=== PATIENT | female | born 1975 | race Caucasian/White ===

== ENCOUNTER 2022-10-09 16:20 | Outpatient (CLI) | payer BC, SELFPAY ==
[2022-10-09 16:46] LABS: Hemoglobin 15.7 g/dL (12.0-15.0); Mean Corpuscular Hemoglobin 28.8 pg (26-34); Mean Corpuscular Volume 89.7 fl (80-100); Mean Platelet Volume 11.4 fl (7.4-10.4); Platelet Count Result 406 k/mm3 (150-375); Red Blood Count 5.46 M/mm3 (4.2-5.4); Red Cell Distribution Width 13.4 % (11.5-14.5); White Blood Count 12.2 K/mm3 (4.5-10.0)
[2022-10-09 16:54] LABS: Alanine Aminotransferase 15 U/L (6-35); Albumin Level 4.2 g/dL (3.5-5.1); Alkaline Phosphatase 144 U/L (38-126); Anion Gap 13 mmol/L (8-16); Aspartate Amino Transferase 18 U/L (14-36); Bilirubin,Total 0.8 mg/dL (0.2-1.3); Blood Urea Nitrogen 8 mg/dL (7-17); CRP 8.9 mg/dL (<1.0); Calcium 8.9 mg/dL (8.4-10.2); Carbon Dioxide 27 mmol/L (22-30); Chloride 94 mmol/L (98-107); Estimated Glomerular Filt Rate > 60; Glucose 111 mg/dL (65-110); Potassium 3.3 mmol/L (3.4-5.0); Sodium 134 mmol/L (137-145)
[2022-10-09 18:19] LABS: Erythrocyte Sedimentation Rate 6 mm/hr (0-20)
[2022-10-09 19:10] LABS: Hepatitis B Surface Antigen Negative (Negative)
[2022-10-09 19:27] LABS: Hepatitis B Surface Anti Res Negative
[2022-10-13 14:24] LABS: NIL 0.88 IU/mL; Quantiferon TB Plus, 1T POSITIVE (NEGATIVE)
[2022-10-14 02:56] LABS: Hepatitis B Core Ab Total Nonreactive (Nonreactive)
== END 2022-10-09 16:21 | disposition home or self-care (01) ==
LOC: ANHLAB 16:21
PROVIDERS: PCP Internal Medicine; Visit Provider Internal Medicine Gastroenterology
DX: K51.90 Ulcerative colitis, unspecified, without complications (principal); K52.9 Noninfective gastroenteritis and colitis, unspecified
CPT/HCPCS: 36415; 80053; 85027; 85652; 86140; 86480; 86704; 86706; 87340

== ENCOUNTER 2022-10-16 09:14 | Outpatient (CLI) | payer BC, SELFPAY ==
--- NOTE | ~2022-10-16 | XR_ITS ---
EXAMINATION: XR chest 2V DATE: 10/16/2022 09:33 INDICATION: Weight TECHNIQUE: PA and lateral views of the chest are obtained. COMPARISON: 10/28/2018 FINDINGS: The lungs are free of acute opacities. No pleural effusion or pneumothorax. The cardiomedia stinal silhouette is normal. There is mild thoracic spondylosis. IMPRESSION: 1. No acute cardiopulmonary abnormality. Reviewed, dictated and finalized at location L.
== END 2022-10-16 09:15 | disposition home or self-care (01) ==
PROVIDERS: PCP Internal Medicine; Visit Provider Internal Medicine Gastroenterology
DX: R63.4 Abnormal weight loss (principal); R76.12 Nonspecific reaction to cell mediated immunity measurement of gamma interferon antigen response without active tuberculosis
CPT/HCPCS: 71046

== ENCOUNTER 2022-12-22 11:14 | Outpatient (CLI) | payer BC, SELFPAY ==
[2022-12-22 11:59] LABS: Cholesterol 162 mg/dL (0-200); HDL Direct 23 mg/dL; Triglycerides 172 mg/dL (<150)
[2022-12-22 12:10] LABS: LDL Cholesterol Direct 103 mg/dL
[2022-12-22 12:52] LABS: Vitamin D 25 Hydroxy < 12.8 ng/mL
[2022-12-22 16:47] LABS: Folic Acid 13.9 ng/mL (2.76->20)
== END 2022-12-22 11:15 | disposition home or self-care (01) ==
PROVIDERS: PCP Family Medicine; Visit Provider Nurse Practitioner Family
DX: R53.83 Other fatigue (principal); Z13.220 Encounter for screening for lipoid disorders
CPT/HCPCS: 36415; 80061; 82306; 82607; 82746; 84443

== ENCOUNTER 2023-02-02 13:55 | Outpatient (CLI) | payer BC, SELFPAY ==
[2023-02-02 14:29] LABS: Hematocrit 44.8 % (37.0-47.0); Hemoglobin 14.3 g/dL (12.0-15.0); Mean Corpuscular HGB Conc 31.9 g/dl (32-36); Mean Corpuscular Hemoglobin 29.1 pg (26-34); Mean Corpuscular Volume 91.1 fl (80-100); Mean Platelet Volume 11.8 fl (7.4-10.4); Platelet Count Result 251 k/mm3 (150-375); Red Blood Count 4.92 M/mm3 (4.2-5.4); White Blood Count 9.9 K/mm3 (4.5-10.0)
[2023-02-02 14:31] LABS: Alanine Aminotransferase 29 U/L (6-35); Albumin Level 4.2 g/dL (3.5-5.1); Alkaline Phosphatase 86 U/L (38-126); Anion Gap 7 mmol/L (8-16); Aspartate Amino Transferase 29 U/L (14-36); Bilirubin,Total 0.5 mg/dL (0.2-1.3); Blood Urea Nitrogen 8 mg/dL (7-17); CRP 0.5 mg/dL (<1.0); Carbon Dioxide 27 mmol/L (22-30); Chloride 103 mmol/L (98-107); Estimated Glomerular Filt Rate > 60; Glucose 96 mg/dL (65-110); Sodium 137 mmol/L (137-145)
[2023-02-02 15:09] LABS: Erythrocyte Sedimentation Rate 12 mm/hr (0-20)
== END 2023-02-02 13:56 | disposition home or self-care (01) ==
LOC: ANHLAB 13:58
PROVIDERS: PCP Nurse Practitioner Family; Visit Provider Internal Medicine Gastroenterology
DX: K51.019 Ulcerative (chronic) pancolitis with unspecified complications (principal); K52.9 Noninfective gastroenteritis and colitis, unspecified
CPT/HCPCS: 36415; 80053; 85027; 85652; 86140

== ENCOUNTER 2023-02-19 13:00 | Outpatient (RCR) | payer BC, OTHER, SELFPAY ==
[2022-11-07 14:23] VITALS: BP 125/87; PULSE 93; RESP 18; TEMP 37; O2SAT 96
[2022-11-07 15:17] VITALS: BP 135/68
[2022-11-21 13:17] VITALS: BP 148/86; PULSE 92; TEMP 36.8; O2SAT 98
[2022-12-25 13:24] VITALS: BP 119/82; PULSE 78; RESP 18; O2SAT 97
[2023-02-19 13:11] VITALS: BP 166/87; PULSE 76; TEMP 37; O2SAT 98
== END 2023-02-23 12:11 ==
LOC: AMCINF 13:00
PROVIDERS: Referring Provider Internal Medicine Gastroenterology; Visit Provider Internal Medicine Hematology & Oncology
DX: K51.90 Ulcerative colitis, unspecified, without complications (principal); K52.9 Noninfective gastroenteritis and colitis, unspecified; R15.2 Fecal urgency; I73.00 Raynaud's syndrome without gangrene; G47.00 Insomnia, unspecified; F17.200 Nicotine dependence, unspecified, uncomplicated
CPT/HCPCS: 96365; J3380; J7050

== ENCOUNTER 2023-04-15 00:39 | Day surgery (SDC) | payer BC, SELFPAY ==
[2023-04-08 14:36] VITALS: BMI 29.1
[2023-04-15 08:26] VITALS: BP 140/83; PULSE 94; RESP 16; TEMP 36.4; O2SAT 99; BMI 27.8
[2023-04-15] MEDS: LACTATED RINGERS 1,000 ML 150 ML IV CONT (08:38)
--- NOTE | 2023-04-15 08:49 | SUR.PREOP ---
Reported to Dr. Saul that patient was unable to urinate for her Upreg test. Per Dr. Saul he is okay with bypassing Upreg if patient is agreeable. Patient waiving Upreg test.
--- NOTE | 2023-04-15 09:28 | P.PNAN_ITS ---
Anes - Initial Pre Proc Eval Procedure: Operation Date: 04/15/23 10:00 Proposed Procedures p Colonoscopy - John Dennis MD Date/Time: 04/15/23 09:28 Surgeon: John Dennis MD Pre Op Diagnosis: ulcerative colitis, unspecified w/o complications Patient Data Age: 47 Gender: F Height: 1.65 m Weight: 75.8 kg Last Vital Signs Temp 97.5 F L 04/15/23 08:26 Pulse 94 04/15/23 08:26 Resp 16 04/15/23 08:26 BP 140/83 04/15/23 08:26 Pulse Ox 99 04/15/23 08:26 O2 Del Method Room Air 04/15/23 08:26 Allergies Allergy/AdvReac Type Severity Reaction Status Date / Time NKDA Allergy Unknown Unknown Uncoded 04/15/23 08:25 Home Medications Medication Instructions Recorded Confirmed Type vedolizumab 300 mg intravenous 300 mg IV ONCE 03/12/23 04/15/23 History solution (Entyvio) Patient hx anesthesia problems: none Family hx anesthesia problems: none Results Review: All pre-operative results and documents have been reviewed as part of the pre- operative evaluation. 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 Fecal urgency Severe diarrhea weight loss Ulcerative colitis Weight loss Family History Family History Mother Family history of obesity Sibling Acute myocardial infarction, Onset Age: 53 Social History Social History Social History: 1.5 PPD x 20 years Smoking packs per day: 1.5 Smoking cigarettes per day: 30.0 Years smoked: 20 Smoking pack-years: 30.00 Smoking status: Current every day smoker Tobacco type: cigarettes Second hand tobacco smoke exposure: Yes Alcohol intake: former Drinks per week: 3 Substance use: never Substance use type: does not use Lack of Transportation: No Lack of Food: Never True Current Housing: I Have Housing Concerned About Future Housing: No Difficulty Paying Gas/Electric Bills: No Difficulty Paying for Meds: No Currently Unemployed: No Education: High School Diploma/GED Difficulty w/ Childcare or Family Care: No Living arrangements: with family Spiritual care concerns: No Anes - Eval Final PreProcedure Day of Procedure 04/15/23 09:28 Patient weight: normal Heart: regular rate and rhythm Lungs: clear to auscultation Airway: Mallampati scale class II Neurological: alert and oriented Last oral intake: >/= 8 hours ASA classification: II Emergent: no Anesthetic plan: proceed Anesthesia type and monitoring: general GIVS and standard monitoring Results Review: All pre-operative results and documents have been reviewed as part of the pre-operative evaluation. Informed Consent: The patient's anesthetic plan and its attendant risks and benefits were discussed with the patient/family/POA. Questions were solicited and answers provided to the satisfaction of the patient/family/POA.
--- NOTE | 2023-04-15 09:30 | PM.HPGS ---
History of Present Illness History of Present Illness Consent: Risks, benefits, and alternatives have been discussed and questions answered. Patient agrees to proceed with procedure. Chief complaint: ulcerative colitis, unspecified w/o complications Narrative: Eliza Jacinto is a 47 year old female who?had severe diarrhea in 2018 and came to me in 2019 diagnosed with severe UC (confirmed? by bx)- only had sigmoidoscopy and left colon evaluated- I did not complete full colonoscopy given severity of disease, on entyvio since August, less diarrhea but still having accidents and she is not back to her baseline yet Review of Systems Constitutional: Constitutional: Denies headache(s) and Denies weakness Eyes: Eyes: Denies blurry vision ENT: Reports Normal hearing present, Denies headache(s) and Denies neck pain Cardiovascular: Cardiovascular: Denies chest pain and Denies dyspnea Respiratory: Respiratory: Denies dyspnea Gastrointestinal: Gastrointestinal: Reports no additional gastrointestinal complaints Genitourinary: Genitourinary: Denies dysuria Musculoskeletal: Musculoskeletal: Denies neck pain Integumentary/Breasts: Skin/Breast: Denies dry skin Neurologic: Reports Normal hearing present, Denies headache(s) and Denies weakness Psychiatric: Psychiatric: Denies anxiety Endocrine: Endocrine: Denies change in body appearance Hematologic/Lymphatic: Hematologic/Lymphatic: Denies easy bleeding Allergic/Immunologic: Allergic/Immunologic: Denies urticaria PMFSH Past Medical History Medical History (QFT) 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 Fecal urgency Severe diarrhea weight loss Ulcerative colitis Weight loss Family History Family History Mother Family history of obesity Sibling Acute myocardial infarction, Onset Age: 53 Social History Social History Social History: 1.5 PPD x 20 years Smoking packs per day: 1.5 Smoking cigarettes per day: 30.0 Years smoked: 20 Smoking pack-years: 30.00 Smoking status: Current every day smoker Tobacco type: cigarettes Second hand tobacco smoke exposure: Yes Alcohol intake: former Drinks per week: 3 Substance use: never Substance use type: does not use Lack of Transportation: No Lack of Food: Never True Current Housing: I Have Housing Concerned About Future Housing: No Difficulty Paying Gas/Electric Bills: No Difficulty Paying for Meds: No Currently Unemployed: No Education: High School Diploma/GED Difficulty w/ Childcare or Family Care: No Living arrangements: with family Spiritual care concerns: No Meds Home Medications and Allergies Home Medications Medication Instructions Recorded Confirmed Type vedolizumab 300 mg intravenous 300 mg IV ONCE 03/12/23 04/15/23 History solution (Entyvio) Allergies Allergy/AdvReac Type Severity Reaction Status Date / Time NKDA Allergy Unknown Unknown Uncoded 04/15/23 08:25 Vital Signs Vital Signs - 24 hr 04/15/23 08:26 Temperature 97.5 F L Pulse Rate 94 Respiratory Rate 16 Blood Pressure 140/83 Pulse Oximetry 99 Oxygen Delivery Room Air Exam Const: General: comfortable and no acute distress HENMT: Face/Nose/Sinus: Normal nares present Eyes: General: appearance normal, both eyes and all related structures Neck: Neck: no JVD Resp: Auscultation: clear to auscultation bilaterally Cardio: Rate: regular rate Rhythm: regular rhythm GI: Inspection: non-distended GI Palp: Yes Soft to palpation Skin: General skin exam: normal color Neuro: General: gait normal Speech: normal speech Extrem: General: normal to inspection Psych: Mental Status: mental status grossly normal Assessment and Plan Assessment and plan (1) Ulcerative colitis: Q
[2023-04-15 09:50] VITALS: BP 119/80; PULSE 87; RESP 17; O2SAT 95
[2023-04-15 10:00] VITALS: BP 122/81; PULSE 97; RESP 17; O2SAT 95
[2023-04-15 10:10] VITALS: BP 134/80; PULSE 81; RESP 16; O2SAT 96
== END 2023-04-15 10:20 | disposition home or self-care (01) ==
PROVIDERS: PCP Nurse Practitioner Family; Visit Provider Internal Medicine Gastroenterology
PROC: 0DJD8ZZ Inspection of Lower Intestinal Tract, Via Natural or Artificial Opening Endoscopic (ICD-10-PCS; CPT 45378; principal; 2023-04-15 10:00)
DX: K51.90 Ulcerative colitis, unspecified, without complications (principal); F17.210 Nicotine dependence, cigarettes, uncomplicated; Z79.620 Long term (current) use of immunosuppressive biologic
CPT/HCPCS: 45380; 88305; J2704; J7120

== ENCOUNTER 2023-05-12 08:41 | Outpatient (CLI) | payer BC, SELFPAY ==
--- NOTE | ~2023-05-12 | MM_ITS ---
EXAMINATION: MM screening rachel BI w nunu HISTORY: Screening mammogram TECHNIQUE: Craniocaudal and mediolateral oblique 3-D tomosynthesis images were obtained and synthetic 2-D images were generated. CAD analysis was submitted and interpreted. COMPARISON: No prior mammogram is available for comparison at this institution. BREAST PARENCHYMAL COMPOSITION: There are scattered areas of fibroglandular density. FINDINGS: Intramammary lymph nodes are noted in the upper outer quadrants of the breasts. No suspicio us mass, calcification, or architectural distortion are identified in either breast to suggest malign katherine. IMPRESSION: 1. No mammographic evidence of malignancy. 2. Recommend routine screening mammography in one year. BI-RADS Category 2: Benign finding(s). Reviewed, dictated and finalized at location A.
== END 2023-05-12 08:42 | disposition home or self-care (01) ==
LOC: ANHIMG 08:45
PROVIDERS: PCP Nurse Practitioner Family; Visit Provider Nurse Practitioner Family
DX: Z12.31 Encounter for screening mammogram for malignant neoplasm of breast (principal)
CPT/HCPCS: 77063; 77067

== ENCOUNTER 2023-09-28 13:41 | Outpatient (CLI) | payer BC, SELFPAY ==
[2023-09-28 15:18] LABS: Basophils Percent Auto 0.2 % (0.2-1.2); Eosinophils Percent Auto 0.3 % (0-4.4); Hematocrit 46.4 % (37.0-47.0); Hemoglobin 14.6 g/dL (12.0-15.0); Immature Granulocyte Absolute 0.17 K/mm3 (0.00-0.031); Immature Granulocyte Percent A 1.3 % (0-0.5); Lymphocytes Absolute Auto 2.34 K/mm3 (0.9-3.2); Lymphocytes Percent Auto 18.3 % (18.3-44.2); Mean Corpuscular HGB Conc 31.5 g/dl (32-36); Mean Corpuscular Volume 95.5 fl (80-100); Mean Platelet Volume 11.4 fl (7.4-10.4); Monocytes Absolute Auto 0.4 K/mm3 (0.1-0.6); Monocytes Percent Auto 3.4 % (2.6-8.5); Neutrophils Absolute Auto 9.8 K/mm3 (1.3-6.7); Neutrophils Percent Auto 76.5 % (45.5-73.1); Platelet Count Result 317 k/mm3 (150-375); Red Blood Count 4.86 M/mm3 (4.2-5.4); White Blood Count 12.8 K/mm3 (4.5-10.0)
[2023-09-28 15:37] LABS: Alanine Aminotransferase 19 U/L (6-35); Albumin Level 4.5 g/dL (3.5-5.1); Alkaline Phosphatase 86 U/L (38-126); Anion Gap 8 mmol/L (8-16); Aspartate Amino Transferase 20 U/L (14-36); Bilirubin,Total 0.5 mg/dL (0.2-1.3); Blood Urea Nitrogen 16 mg/dL (7-17); CRP < 0.5 mg/dL (<1.0); Calcium 9.3 mg/dL (8.4-10.2); Carbon Dioxide 29 mmol/L (22-30); Chloride 101 mmol/L (98-107); Estimated Glomerular Filt Rate > 60; Glucose 102 mg/dL (65-110); Potassium 3.5 mmol/L (3.4-5.0); Sodium 138 mmol/L (137-145)
[2023-09-28 17:23] LABS: Vitamin D 25 Hydroxy 30.6 ng/mL
[2023-09-28 17:40] LABS: Hepatitis B Surface Antigen Negative (Negative)
[2023-09-28 17:54] LABS: Hepatitis B Surface Anti Res Negative
[2023-09-28 21:32] LABS: Iron 97 ug/dL (37-170); Percent Iron Saturation 21 % (20-50)
[2023-10-03 05:07] LABS: Hepatitis B Core Ab Total Nonreactive (Nonreactive)
[2023-10-03 12:20] LABS: NIL 0.04; TB1-NIL 0.03; TB2-NIL 0.07
[2023-10-03 12:23] LABS: Quantiferon TB Plus, 1T Negative
[2023-10-17 13:00] LABS: TPMT Activity 21
== END 2023-09-28 13:42 | disposition home or self-care (01) ==
PROVIDERS: PCP Nurse Practitioner Family
DX: K51.90 Ulcerative colitis, unspecified, without complications (principal); Z79.899 Other long term (current) drug therapy
CPT/HCPCS: 36415; 80053; 82306; 82607; 82657; 82728; 83540; 83550; 85025; 86140; 86480; 86704; 86706; 87340

== ENCOUNTER 2023-10-05 14:26 | Outpatient (CLI) | payer BC, SELFPAY ==
--- NOTE | ~2023-10-05 | XR_ITS ---
XR abdomen/kub 1V 10/05/2023 14:44 INDICATION: Ulcerative colitis. TECHNIQUE: KUB COMPARISON: Upper GI dated 02/12/2024 FINDINGS: Bowel gas pattern is normal. Moderate colonic fecal loading. There are cholecystectomy clip s. There is no evidence of free air, mass, organomegaly, ascites or obstruction. No abnormal calculi are seen. The bones appear intact. IMPRESSION: 1: No acute abdominal abnormality identified. Reviewed, dictated and finalized at location L.
[2023-10-05 17:03] LABS: Toxigenic C. Diff NEGATIVE (NEGATIVE)
[2023-10-11 00:22] LABS: Calprotectin, Stool 2090 mcg/g
== END 2023-10-05 14:27 | disposition home or self-care (01) ==
PROVIDERS: PCP Nurse Practitioner Family
DX: R19.7 Diarrhea, unspecified (principal); K51.90 Ulcerative colitis, unspecified, without complications; R10.9 Unspecified abdominal pain
CPT/HCPCS: 74018; 83993; 87493

== ENCOUNTER 2023-10-28 14:02 | Outpatient (CLI) | payer BC, SELFPAY ==
--- NOTE | ~2023-10-28 | XR_ITS ---
XR abdomen/kub 1V 10/28/2023 14:31 INDICATION: Abdomen pain. Ulcerative colitis. TECHNIQUE: KUB COMPARISON: KUB dated 10/05/2023 FINDINGS: Bowel gas pattern is normal. Moderate colonic fecal loading. There are cholecystectomy clip s. There is no evidence of free air, mass, organomegaly, ascites or obstruction. No abnormal calculi are seen. The bones appear intact. IMPRESSION: 1: No acute abdominal abnormality identified. Reviewed, dictated and finalized at location B.
== END 2023-10-28 14:03 | disposition home or self-care (01) ==
PROVIDERS: PCP Nurse Practitioner Family
DX: R19.7 Diarrhea, unspecified (principal)
CPT/HCPCS: 74018

== ENCOUNTER 2024-02-18 14:47 | Outpatient (CLI) | payer BC, SELFPAY | END 2024-02-18 14:48 | disposition home or self-care (01) | PROVIDERS: PCP Nurse Practitioner Family | DX: K51.30 Ulcerative (chronic) rectosigmoiditis without complications (principal); Z79.899 Other long term (current) drug therapy | CPT/HCPCS: 36415 ==

== ENCOUNTER 2024-02-23 15:16 | Outpatient (NON) | payer BC, SELFPAY ==
[2024-02-23 19:11] LABS: Toxigenic C. Diff NEGATIVE (NEGATIVE)
[2024-02-27 20:53] LABS: Fecal Fat, Ql Normal (Normal)
[2024-02-27 21:34] LABS: Calprotectin, Stool 1470 mcg/g
[2024-02-28 20:29] LABS: Pancreatic Elastase, Stool 166 mcg/g
== END 2024-02-23 15:17 | disposition home or self-care (01) ==
PROVIDERS: PCP Nurse Practitioner Family
DX: K51.30 Ulcerative (chronic) rectosigmoiditis without complications (principal); R19.7 Diarrhea, unspecified
CPT/HCPCS: 82653; 82705; 83993; 87045; 87177; 87209; 87427; 87449; 87493

== ENCOUNTER 2024-05-05 11:38 | Outpatient (CLI) | payer BC, SELFPAY ==
--- NOTE | ~2024-05-05 | XR_ITS ---
[id number] 05/05/2024 11:56 Indication: Right knee pain Procedure: 2 views right knee Comparison: No prior studies for comparison. Findings: No fracture, subluxation or dislocation. No significant joint effusion. No foreign bodies. Impression: 1: No significant bone or joint abnormality. Reviewed, dictated and finalized at location B. Impression: 1: No significant bone or joint abnormality.
== END 2024-05-05 11:39 | disposition home or self-care (01) ==
LOC: ANHIMG 11:39
PROVIDERS: PCP Nurse Practitioner Family; Visit Provider Nurse Practitioner Family
DX: M25.561 Pain in right knee (principal)
CPT/HCPCS: 73560

== ENCOUNTER 2024-07-14 15:15 | Outpatient (RCR) | payer BC, SELFPAY ==
--- NOTE | 2024-06-29 12:04 | OPREHPOC ---
Outpatient Therapy Plan of Care This is a Multidisciplinary Plan of Care that may contain components documented by all disciplines (PT, OT, and ST.) PT Problem 1 PT Problem #1 Knowledge Deficit PT Goal 1 Goal / Goal Update 1. Patient will perform independent HEP Target Visit 3 PT Problem 2 PT Problem #2 Impaired Strength PT Goal 1 Goal / Goal Update 1. Improve pelvic floor strength to 4/5 to reduce fecal incontinence 2. Improve pelvic floor endurance to 10 seconds to reduce fecal incontinence 3. Patient able to contract abdominal muscles without compensation Target Visit 6 PT Problem 3 PT Problem #3 Impaired Functional ADLs PT Goal 1 Goal / Goal Update 1. Patient will report fecal incontinence no more than 1 time a week 2. Patient will not need to use adult diapers Target Visit 6
--- NOTE | 2024-06-29 12:04 | PTOPEVAL1 ---
Assessment and note entered by Iesha Abdi DPT Evaluation Information Assessment Status Evaluation Diagnosis r15.9, k59.02 Subjective Information Pt reports she has been diagnosed with UC/Chron's and will be consulting with a surgeon in July. Voids less than 10 times a day and none at night. Denies urinary incontinence or pain. Can hold urge to void 15-30 minutes. BM up to 20 times a day, states she will not eat until dinner and then will start having very frequent BM overnight. Fecal incontinence 3-4 days a week and may be multiple times a day. Symptoms started about 5 years ago and have been worsening. Has tried multiple medications. Goes through 4 adult diapers a day. States she always knows where a bathroom is when she goes out in the community and has to eat around her plans . 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 Pt has been 2 times, delivered 1 time vaginally with an episiotomy. No other [employer] history or b/b issues. Pt does not have pain associated with Chron's. Patient goal: see if therapy can help me Returns to MD in July. Surgery is not scheduled yet. Reported Pain Level Pain Score 0: Self Report Assessment PT Clinical Summary The patient is presenting to skilled therapy with a history of Chron's disease and significant fecal incontinence. She demonstrates decreased pelvic floor strength and endurance and decreased hip/ core strength which are contributing to her incontinence multiple times a week. She will highly benefit from therapy to address these impairments in order to safely reduce incontinence and improve overall function. Plan of Care Interventions Manual Therapy,Neuro Re-education,Patient/ Caregiver Education,Therapeutic Activities, Therapeutic Exercise PT Services Indicated Yes Treatment Frequency and 1 time a week for 6 visits Duration These treatments will address the objective and functional deficits as defined above. The patient will be advanced safely and appropriately in order for the patient to progress towards his/her prior level of function. Additional exercises will be introduced and as well as a comprehensive home exercise program upon discharge, if needed, ?to ensure carryover of functional gains achieved in the clinic. This treatment plan has been reviewed and agreement upon by the patient.
--- NOTE | 2024-07-08 10:35 | PCPTNOTE ---
Patient called to cancel 07/08/24 due to illness.
--- NOTE | 2024-07-22 11:01 | PTOPDC ---
Assessment and note entered by Iesha Abdi DPT Evaluation Information Assessment Status Discharge - Pt Not Present Diagnosis r15.9, k59.02 Subjective Information - Assessment PT Clinical Summary Patient called 07/21/24 to self discharge from therapy in preparation of upcoming surgery. She had attended 2 therapy sessions. Plan of Care PT Services Indicated No
== END 2024-07-22 13:19 | disposition home or self-care (01) ==
LOC: ANHPT 15:15
PROVIDERS: PCP Nurse Practitioner Family
DX: R15.9 Full incontinence of feces (principal); K59.02 Outlet dysfunction constipation
CPT/HCPCS: 97112; 97161; 97530

== ENCOUNTER 2024-07-27 15:02 | Outpatient (CLI) | payer BC, SELFPAY ==
--- NOTE | ~2024-07-27 | MM_ITS ---
EXAMINATION: MM screening rachel BI w nunu HISTORY: Screening mammogram TECHNIQUE: Craniocaudal and mediolateral oblique 3-D tomosynthesis images were obtained and synthetic 2-D images were generated. CAD analysis was submitted and interpreted. COMPARISON: 05/12/2023 BREAST PARENCHYMAL COMPOSITION:Not Dense. The breasts are almost entirely fatty FINDINGS: No suspicious mass, calcification, or architectural distortion are identified in either [place] ast to suggest malignancy. There has been no suspicious interval change. IMPRESSION: No mammographic evidence of malignancy. Recommend routine screening mammography in one year. BI-RADS Category 1: Negative Reviewed, dictated and finalized at location . [employer]
== END 2024-07-27 15:03 | disposition home or self-care (01) ==
LOC: ANHIMG 15:05
PROVIDERS: PCP Nurse Practitioner Family; Visit Provider Nurse Practitioner Family
DX: Z12.31 Encounter for screening mammogram for malignant neoplasm of breast (principal)
CPT/HCPCS: 77063; 77067

== ENCOUNTER 2025-01-04 12:52 | Emergency (ER) | payer BC, SELFPAY ==
[2025-01-04 13:00] VITALS: BP 177/111; PULSE 91; RESP 18; TEMP 36.7; O2SAT 98
--- NOTE | 2025-01-04 13:04 | ED_ITS ---
HPI - Ear Problem General Chief complaint: Ear Stated complaint: ear drainage and ear pain Time Seen by Provider: 01/04/25 13:20 Source: patient and RN notes reviewed Mode of arrival: ambulatory Limitations: no limitations History of Present Illness HPI Narrative: 49-year-old female presents with concern for right ear pain and drainage. She reports for 3 days she has had ear pain with watery/bloody drainage. She reports she does use Q-tips. She denies any cold symptoms or fever. She reports in the past she has gotten ear infection for going under water, she has not been swimming recently. She also reports she is out of her blood pressure medication, she has been out for a week. She has an appoint with her primary care provider in 6 days. MD Complaint: ear pain Related Data Home Medications ?Medication ?Instructions ?Recorded ?Confirmed ?Last Taken ?Type infliximab 100 mg intravenous mg IV 03/11/24 08/30/24 Unknown History solution Allergies Allergy/AdvReac Type Severity Reaction Status Date / Time No Known Allergies Allergy Verified 01/04/25 12:59 Review of Systems Review of Systems: CONSTITUTIONAL: Denies malaise, chills, sweats, or fever. EYES: Denies visual changes, redness, or discharge. ENT: Denies rhinorrhea, congestion, sinus pain, and sore throat. Reports right ear pain and drainage CARDIOVASCULAR: Denies chest pain, palpitations, or edema. RESPIRATORY: Denies cough. Denies dyspnea. GASTROINTESTINAL: Denies abdominal pain, nausea, vomiting, diarrhea SKIN: Denies rash or itching. MUSCULOSKELETAL: Denies myalgia. NEUROLOGIC: Denies headache. 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 Fecal urgency Weight loss Ulcerative colitis Severe diarrhea weight loss Family History Family History (System 08/04/24 @ 10:26 by Ashli Back) Mother Family history of obesity Sibling Acute myocardial infarction, Onset Age: 53 Social History Social History (System 08/04/24 @ 10:26 by Ashli Back) Social History: 1.5 PPD x 20 years Smoking packs per day: 1.5 Smoking cigarettes per day: 30.0 Years smoked: 20 Smoking pack-years: 30.00 Smoking status: Current every day smoker Tobacco type: cigarettes Second hand tobacco smoke exposure: Yes Alcohol intake: former Drinks per week: 3 Substance use: never Substance use type: does not use Lack of Transportation: No Lack of Food: Never True Current Housing: I Have Housing Concerned About Future Housing: No Difficulty Paying Gas/Electric Bills: No Difficulty Paying for Meds: No Currently Unemployed: No Education: High School Diploma/GED Difficulty w/ Childcare or Family Care: No Living arrangements: with family Spiritual care concerns: No Comments At time of signature, agree with nursing past medical, surgical, social and family history. There is no relevant family history pertinent to the presenting complaint Exam Narrative: GENERAL: Well-appearing, well-nourished, and in no acute distress. HEAD: Normocephalic EYES: PERRLA, conjunctivae clear ENT: Nares clear. Mucous membranes moist. TM pearly mehta with dull light reflex on the left, erythematous and bulging on right; no tragal tenderness, right EAC erythematous and edematous with drainage. NECK: Supple. No lymphadenopathy CHEST: Clear to auscultation, breath sounds equal. No wheezing, rhonchi, rales, or stridor. No respiratory distress, speaks in full sentences. HEART: Regular rate and rhythm. No murmur heard. SKIN: Warm, dry, no rash. NEURO: Alert and oriented x3. PSYCH: Normal mood and affect Course Course Emergency Course: Patient is aware of diagnosis, understands and agrees to treatment plan. Anticipatory guidance given. Patient agrees to follow-up as directed and is aware of reasons to seek care at the emergency department. Portions of this record may have been created with voice recognition software Level of Care: Express Care Visit Vital Signs Vital signs: Vital Signs Temperature 98.0 F 01/04/25 13:00 Pulse Rate 91 01/04/25 13:00 Respiratory Rate 18 01/04/25 13:00 Blood Pressure 177/111 H 01/04/25 13:00 Pulse Oximetry 98 01/04/25 13:00 Oxygen Delivery Room Air 01/04/25 13:00 Temperature 98.0 F 01/04/25 13:00 Pulse Rate 91 01/04/25 13:00 Respiratory Rate 18 01/04/25 13:00 Blood Pressure 177/111 H 01/04/25 13:00 Pulse Oximetry 98 01/04/25 13:00 Oxygen Delivery Room Air 01/04/25 13:00 Reviewed. Medical Decision Making MDM Narrative Medical decision making narrative: I evaluated this in the [facility] care. History is obtained from patient who is an independent historian and physical exam was performed.? Available medical records were reviewed. ? Exam findings and relevant testing show no acute concerns or changes; patient is non-toxic appearing and is in no distress. Differential diagnosis considered: Peralta virus, strep pharyngitis, allergic rhinitis, upper respiratory tract infection, sinusitis, rhinosinusitis, nasopharyngitis. viral pharyngitis, otitis media, otitis externa, otitis effusion, cerumen impaction, foreign body. Exam findings show no acute concerns or changes; patient is non-toxic appearing and is in no distress. Patient is appropriate for outpatient treatment and follow-up. ? Differential diagnosis and treatment plan were discussed with the patient. Patient agrees with discussion and after shared medical decision making agrees with plan of care. All questions were answered to the patient's satisfaction. Patient is appropriate for outpatient treatment and follow-up. Vital Signs Vital Signs: Vital Signs Temperature 98.0 F 01/04/25 13:00 Pulse Rate 91 01/04/25 13:00 Respiratory Rate 18 01/04/25 13:00 Blood Pressure 177/111 H 01/04/25 13:00 Pulse Oximetry 98 01/04/25 13:00 Oxygen Delivery Room Air 01/04/25 13:00 Temperature 98.0 F 01/04/25 13:00 Pulse Rate 91 01/04/25 13:00 Respiratory Rate 18 01/04/25 13:00 Blood Pressure 177/111 H 01/04/25 13:00 Pulse Oximetry 98 01/04/25 13:00 Oxygen Delivery Room Air 01/04/25 13:00 Critical Care Time Critical Care Time Critical Care Time: No Discharge Plan Discharge Clinical Impression: Otitis externa, Otitis media, Medication refill Patient Disposition: Home Condition: Stable Instructions: Antibiotic Form, How to Use Ear Drops (ED) Additional Instructions: Take antibiotics and use ear drops as directed. Recommend antihistamine such as Benadryl at night time and Zyrtec or Celeste during the day until symptoms improve Flonase nasal spray, 2 sprain in each nostril once daily until symptoms improve Also, recommend symptomatic treatment includes: rest, fluids, and increase humidity of the air at home. Recommend Acetaminophen as directed on the bottle to reduce fever, pain Please schedule a follow-up visit with your personal physician for further evaluation and treatment within 3-5days. If your symptoms persist, change or worsen significantly before you can contact your personal physician then please, without delay, go to the emergency department for further evaluation. Patient Language: Chinese Prescriptions: New amoxicillin 400 mg/5 mL suspension for reconstitution 850 mg PO BID 10 Days Qty: 212.5 0RF hfylxxsi-[id number]-EY 3.5-10,000-1 mg/mL-unit/mL-% drops,suspension 4 drop RIGHT EAR Q8H 7 Days Qty: 10 0RF amlodipine-benazepril 2.5-10 mg capsule 1 cap PO DAILY Qty: 10 0RF No Action infliximab 100 mg recon soln IV amlodipine-benazepril 2.5-10 mg capsule See Rx Instructions .ROUTE .COMPLEX Qty: 90 0RF Dose Instruction: TAKE 1 CAPSULE BY MOUTH EVERY DAY Rx Instructions: TAKE 1 CAPSULE BY MOUTH EVERY DAY Follow-up/Referrals: Len Bazzi MD [Primary Care Provider] - Time of Disposition: 13:32
[2025-01-04 13:16] VITALS: BP 175/120
== END 2025-01-04 13:35 | disposition home or self-care (01) ==
PROVIDERS: Emergency Provider Nurse Practitioner; PCP Family Medicine
DX: H60.91 Unspecified otitis externa, right ear (principal); H66.91 Otitis media, unspecified, right ear; F17.210 Nicotine dependence, cigarettes, uncomplicated
CPT/HCPCS: 99213; G0463